=== PATIENT | male | born 1995 | race Caucasian/White ===

== ENCOUNTER 2019-03-29 06:23 | Day surgery (SDC) | payer OTHER ==
[~2019-03-29] VITALS: Ht 182.9 cm; Wt 78.8 kg
[2019-03-29] MEDS ORDERED: SODIUM CHLORIDE 0.9% 1,000 ML IV SCH (06:56)
[2019-03-29 07:11] VITALS: BP 130/87
[2019-03-29 08:08] LABS: INTERNATIONAL NORMALIZED RATIO 0.99 (0.93-1.1); PROTHROMBIN TIME 10.5 Seconds (9.6-11.5)
[2019-03-29] MEDS ORDERED: FENTANYL PF 100 MCG/2ML ONE (08:14)
[2019-03-29] MEDS ORDERED: NALOXONE 1 MG/ML, 2ML ONE (08:15)
[2019-03-29] MEDS ORDERED: MIDAZOLAM 1 MG/ML, 5ML ONE (08:15)
[2019-03-29] MEDS ORDERED: FLUMAZENIL 0.1 MG/1 ML, 5ML ONE (08:15)
== END 2019-03-29 10:25 | disposition home or self-care (01) ==
LOC: OUT 06:23
PROVIDERS: ATTEND Internal Medicine Nephrology
DX: N02.8 Recurrent and persistent hematuria with other morphologic changes (principal); N18.2 Chronic kidney disease, stage 2 (mild); D64.9 Anemia, unspecified; N13.30 Unspecified hydronephrosis
CPT/HCPCS: 36415; 50200; 77012; 85610; 88300; 99156; 99157; J2250; J3010; J2310